=== PATIENT | female | born 1940 | race Caucasian/White ===

== ENCOUNTER 2022-10-09 09:34 | Emergency (ER) | payer OTHER, SELFPAY ==
[2022-10-09 09:39] VITALS: BP 170/85; PULSE 80; RESP 18; TEMP 36.5; O2SAT 98
--- NOTE | 2022-10-09 09:58 | DI.RAD_ITS ---
Exam(s) XR FINGER RT MIDDLE EXAM: XR FINGER RT MIDDLE CLINICAL HISTORY: FOOSH bone protruding from skin, self reduced PIP. TECHNIQUE: 2D digital imaging was performed. Three views. COMPARISON: No exams were available for comparison FINDINGS: BONES: No acute fracture is present. No bony destructive lesion is seen. JOINTS: There is dislocation at the proximal interphalangeal joint of the middle finger. The middle phalanx is dislocated posteriorly to the level of the head of the proximal phalanx. Minimal underlyi ng degenerative changes. SOFT TISSUE: Air seen around PIP joint. IMPRESSION: Posterior dislocation at the 3rd PIP joint. DATA REPOSITORY: RADIATION DOSE DELIVERED:
[2022-10-09] MEDS: Acetaminophen 325 MG TAB 650 MG PO (10:09)
--- NOTE | 2022-10-09 10:13 | ED.GENADUL_ITS ---
Discharge Plan Disposition Patient Disposition: Home Condition: Good Discharge Details Clinical Impression: Open dislocation of finger Primary Care Provider: Unknown,Unknown ED Provider: Ashley Chavez Home Meds and New Rx's Prescriptions: New cephalexin 500 mg tablet 500 mg PO QID 5 Days Qty: 20 0RF Discharge Instructions Instructions: Care For Your Stitches (ED), Finger Dislocation (ED) Additional Instructions: When you fell today, you suffered a dislocation with a bone coming through the skin resulting in a laceration that was closed. This was since reduced. X-rays are reassuring after the reduction was performed. Skin was closed with nonabsorbable sutures which will have to be removed in 10 to 12 days. Please keep wound clean, dry, covered. You may wash with running water and soap and then gently dry and reapply dressing. Current dressing should stay on for the next 24 to 48 hours. After you remove this, please apply a Band-Aid and then the foam and metal splint this been giving to you to help immobilize your finger. Please take the antibiotics as prescribed to help with any infection. Please call your primary care provider to discuss referral to orthopedics as you should follow-up with them within the next week. Please monitor wound for signs infection including redness, warmth, drainage, increased pain, fever/chills. If you develop these or other new/worsening symptoms please seek care urgently once again. Medical Decision Making Patient is a pleasant [id number] 82-year-old female, brought in by a friend, with chief complaint of injury to the right middle finger. she reports a prior to arrival she tripped and fell in a cafeteria landing on outstretched hands. Suffered injury to the right middle finger. States that initially the bone was protruding from the skin but she did persist back in. Indicates the PIP joint is area of injury. This was displaced In the palmar direction as there is no dorsal sided break in the skin. She denies any numbness or tingling. Denies other injury at the time of the incident.unknown tetanus status, we will update this today. On exam, patient is resting comfortably. Exam of the right hand reveals to be neurovascularly intact. Sensation is intact. 2+ distal pulses. Intact capillary refill. Obvious deformity at the PIP joint with finger in fixed extension. Bone is able to be visualized along the palmar side in laceration. MCP and PIP joint appear unaffected. Will obtain x-ray to further evaluate and see if this is dislocation versus fracture. Will update tetanus. Patient I discussed with/benefits as well as expected procedural steps associated with digital block. Patient voiced understanding and wished to proceed. She tolerated this well. 6 cc of 1% lidocaine plain was infiltrated.This offered good anesthetic effect. BONES: No acute fracture is present. No bony destructive lesion is seen. JOINTS: There is dislocation at the proximal interphalangeal joint of the middle finger.? The middle phalanx is dislocated posteriorly to the level of the head of the proximal phalanx.? Minimal underlying degenerative changes. SOFT TISSUE: Air seen around PIP joint. IMPRESSION: Posterior? dislocation at the 3rd PIP joint.? Discussed these findings with the patient. Her digital block remains in effect. Patient discussed her/benefits, expected procedural steps and return to redu ction, washout and closure. Orthopedics is not available at this time. She will follow-up with them when she is home. Patient voiced understanding and wished to proceed. Please see procedure note. Procedure performed using standard sterile Technique. direct manipulation was first used to reduce the dislocated PIP joint. Patient tolerated this well no discomfort and easily went back with good range of motion which is still slightly limited but this appears more to be from swelling. Wound was then copiously irrigated with sterile saline and explored to base. No FB or debris noted. Closed in simple interupted fashion, allowed some gaps for drainage if this was to occur. Wound edges came together well without tension on the wound. Bulky sterile dressing applied. Will repeat post reduction films. Post reduction imaging obtained BONES: There is a question of fracture fragment ventral to the head of the proximal phalanx of the 3rd finger, fractured from the ventral base of the middle phalanx.? No bony destructive lesion is seen. JOINTS: Previously noted posterior dislocation has been reduced. SOFT TISSUE: Normal. IMPRESSION: Reduction of the previously noted posterior dislocation of the PIP joint.? Small bony fragment visible adjacent to the head of the proximal phalanx Discussed these findings with the patient. Advised that she will need orthopedic follow-up. She is returning home at the end of the week and will follow up the beginning of next week with provider at home. I encouraged that she call her primary care to ensure referral has been sent appropriately. We discussed wound care in depth. We will begin the patient on cephalexin, she was given her first dose here and the remaining was sent to local pharmacy at patient request. She will keep current dressing on for the next 24 to 48 hours, sent with foam and metal splint to apply after removal of current dressing. Strict return precautions were discussed, in particular signs symptoms of infection. Discussed activities she should avoid. Advised acetaminophen or ibuprofen as needed for discomfort. All of her questions and concerns were addressed and she is in agreement this plan. HPI General Date/Time Provider Initiated Documentation: 10/09/22 09:39 . Limitations to Documentation: no limitations . Information obtained by: patient, family (friend) and RN notes reviewed . History of Present Illness 82 year old F presents to the emergency department with the chief complaint of right index finger laceration, fracture or dislocation, described as severe, Quality is described as aching, and is localized to the right and upper extremity. Patient reports no radiation. Patient started experiencing this minute(s) and it has been constant. Immobilization improves symptom(s), (reduced visible bone, had some improvement with that) Movement worsens symptoms . Patient notes no other symptoms.. Patient did receive the following treatments prior to arrival, none Related Data Home Medications Medication Instructions Recorded Confirmed cephalexin 500 mg tablet 500 mg PO QID 5 days #20 tabs 10/09/22 Previous Rx's Medication Instructions Recorded cephalexin 500 mg tablet 500 mg PO QID 5 days #20 tabs 10/09/22 General Stated Complaint: Laceration REY: 4 Review of Systems Constitutional Constitutional: Reports as per HPI, Denies chills, Denies fever(s) and Denies weakness Cardiovascular Cardiovascular: Reports as per HPI Musculoskeletal Musculoskeletal: Reports as per HPI and Denies tingling Integumentary/Breasts Skin/Breast: Reports as per HPI Neurologic Neurologic: Reports as per HPI, Denies tingling, Denies paresthesias and Denies weakness [facility] All Active Problems (Updated 10/09/22 @ 11:50 by JEFF Leyva) Open dislocation of finger (Acute) Social History Smoking/Tobacco Use Status: Never Smoking risk assessment performed?: Yes Alcohol Intake: never Substance use type: does not use Do you feel safe at home: Yes Do you feel safe in your relationship?: Yes Exam Const General: cooperative, healthy appearing, no acute distress, well developed and well groomed Nutritional Appearance: average body habitus and well nourished Orientation: alert and awake Resp Effort & Inspection: normal respiratory effort, able to speak in complete sentences and no respiratory distress Cardio Rate: regular rate Rhythm: regular rhythm Skin Trauma: laceration Neuro General: patient alert and patient awake Cognition: normal cognition Speech: speech normal Gait: normal gait Motor: muscle tone normal throughout Sensory Exam: no sensory deficits noted Extrem Hand/finger images: 2 1. Area of laceration. Bone is able to be visualized. The PIP joint has an obvious deformity with limited range of motion. PIP is mobile as is the MCP joint. No other laceration, this stays just on the palmar side and does not extend to the dorsal surface. Circumferentially around the PIP and proximal metatarsal, finger is ecchymotic and swollen. No active bleeding. Sensation is intact distal to the wound. No pain proximal to this or other fingers. Course Vital Signs Vital signs: Vital Signs Temperature 36.5 C 10/09/22 09:39 Pulse 80 10/09/22 09:39 Respiratory Rate 18 10/09/22 09:39 Blood Pressure 170/85 H 10/09/22 09:39 Pulse Oximetry 98 10/09/22 09:39 Temperature 36.5 C 10/09/22 09:39 Temperature Source Tympanic 10/09/22 09:39 Pulse 80 10/09/22 09:39 Respiratory Rate 18 10/09/22 09:39 Respiratory Effort Normal 10/09/22 10:04 Blood Pressure 170/85 H 10/09/22 09:39 Blood Pressure Position Supine 10/09/22 09:39 Pulse Oximetry 98 10/09/22 09:39 Oxygen Delivery Method Room Air 10/09/22 09:39 Oxygen Flow Rate 0 10/09/22 09:39 Procedures Laceration Laceration 1: Site: hand Side (If applicable): right Size (cm): 3 Description: linear and clean Depth: involves tendon (dislocated DIP joint although no tendon involvement visualized) Local Anesthetic: Lidocaine 1% Amount of anesthesia used (mL): 8 Pre-repair: wound explored, irrigated extensively and deep structures intact Skin layer closed with: nylon Size (cm): 5-0 Number of sutures: 5 Orthopedic Joint Reduction Joint #1: Time Out Performed: Yes Side: right Joint Reduction Location: finger Analgesia: digital block Technique used: direct manipulation Post-reduction neuro exam: no change Post-reduction vascular: intact Post Reduction X-Ray Obtained: Yes
--- NOTE | 2022-10-09 11:15 | DI.RAD_ITS ---
Exam(s) XR FINGER RT MIDDLE EXAM: XR FINGER RT MIDDLE CLINICAL HISTORY: post reduction. TECHNIQUE: 2D digital imaging was performed. Three views. COMPARISON: CR XR FINGER RT MIDDLE from 10/09/2022 FINDINGS: BONES: There is a question of fracture fragment ventral to the head of the proximal phalanx of the 3r d finger, fractured from the ventral base of the middle phalanx. No bony destructive lesion is seen. JOINTS: Previously noted posterior dislocation has been reduced. SOFT TISSUE: Normal. IMPRESSION: Reduction of the previously noted posterior dislocation of the PIP joint. Small bony fragment visibl e adjacent to the head of the proximal phalanx DATA REPOSITORY: RADIATION DOSE DELIVERED:
[2022-10-09] MEDS: Cephalexin 500 MG CAP PO (12:08)
[2022-10-09 12:09] VITALS: BP 156/78; PULSE 84; RESP 18; O2SAT 97
== END 2022-10-09 12:10 | disposition home or self-care (01) ==
PROVIDERS: Emergency Provider Physician Assistant
DX: S61.212A Laceration without foreign body of right middle finger without damage to nail, initial encounter (principal); S63.282A Dislocation of proximal interphalangeal joint of right middle finger, initial encounter; W18.39XA Other fall on same level, initial encounter; Y93.89 Activity, other specified; Y92.019 Unspecified place in single-family (private) house as the place of occurrence of the external cause
CPT/HCPCS: 12002; 26755; 26770; 90471; 99284; 73140